=== PATIENT | female | born 1990 | race Caucasian/White ===

== ENCOUNTER 2020-03-25 00:07 | Inpatient (IN) | payer BC ==
[~2020-03-25] VITALS: Ht 170.2 cm; Wt 142.4 kg
--- NOTE | 2020-03-25 12:09 | PR ---
[facility] [address] [facility] [place], [place] [address] Signed Progress Notes IP Datetime Report Generated by CPN: 03/25/2020 12:09 PROGRESS NOTES: [id number] Impression: Reassuring Heart Rate Procedures: Sterile Vag Exam Plan: Continue Present Management VITAL SIGNS: [id number] Vital Signs: Reviewed EXAM: [id number] Dilatation: 2.5 Effacement: 50 Station: -3 Contractions: q 1-3 min MEMBRANES: [id number] Comments: Pt seen and examined. Comfortable w/ epidural. On sterile vaginal exam, fingers noted between vertex and cervix. Unable to perform AROM. Will expectantly manage. FETUS A: [id number] FHR Baseline: 125 Variability: Moderate 6-25bpm Accelerations: 15X15 Decelerations: None FHR Category: Category I Presentation: Vertex Comments on Fetus A: No evidence of metabolic acidosis FETUS B: [id number] Signing Physician: Saw Mc DO Copies: ~ *Electronically Signed* 03/25/20 120 SAW MC DO PATIENT NAME: DOMINIQUE BRAUN PROGRESS NOTE DATE OF : 90 PHYSICIAN: SAW MC DO RPT #: [id number] REPORT IS CONFIDENTIAL AND NOT TO BE RELEASED WITHOUT AUTHORIZATION
--- NOTE | 2020-03-25 14:34 | PR ---
[facility] [address] [place], [place] [address] Signed Progress Notes IP Datetime Report Generated by MONET: 03/25/2020 14:34 PROGRESS NOTES: [id number] Impression: Normal Progression of Labor; Reassuring Heart Rate Procedures: Intrauterine Pressure Catheter; Scalp Electrode; Sterile Vag Exam Plan: Continue Present Management VITAL SIGNS: [id number] Vital Signs: Reviewed EXAM: [id number] Dilatation: 2.5 Effacement: 50 Station: -3 Contractions: q 1-3 min MEMBRANES: [id number] Comments: Pt seen and examined. Comfortable w/ epidural. hand no longer palpated and vertex well applied. AROM performed for moderate amount clear fluid, and IUPC/FSE placed without difficulty. Mother and baby tolerated well. Will continue monitoring closely. Glucose levels hourly FETUS A: [id number] FHR Baseline: 125 Variability: Moderate 6-25bpm Accelerations: 15X15 Decelerations: None FHR Category: Category I Presentation: Vertex Comments on Fetus A: No evidence of metabolic acidosis FETUS B: [id number] Signing Physician: Saw Mc DO Copies: ~ *Electronically Signed* 03/25/20 1432 SAW MC DO PATIENT NAME: DOMINIQUE BRAUN PROGRESS NOTE DATE OF : 90 PHYSICIAN: SAW MC DO RPT #: [id number] REPORT IS CONFIDENTIAL AND NOT TO BE RELEASED WITHOUT AUTHORIZATION
--- NOTE | 2020-03-25 18:59 | PR ---
[facility] [address] [facility] [place], [place] [address] Signed Progress Notes IP Datetime Report Generated by CPN: 03/25/2020 18:59 PROGRESS NOTES: [id number] Impression: Normal Progression of Labor; Reassuring Heart Rate Procedures: Sterile Vag Exam Plan: Continue Present Management VITAL SIGNS: [id number] Vital Signs: Reviewed EXAM: [id number] Dilatation: 4.0 Effacement: 50 Station: -3 Contractions: q 1-3 min MEMBRANES: [id number] Comments: Pt seen and examined. Comfortable w/ epidural in place. Cervix unchanged. Will start low dose pitocin per protocol. Reviewed in detail w/ pt. All questions answered. FETUS A: [id number] FHR Baseline: 125 Variability: Moderate 6-25bpm Accelerations: 15X15 Decelerations: None FHR Category: Category I Presentation: Vertex Comments on Fetus A: No evidence of metabolic acidosis FETUS B: [id number] Signing Physician: Saw Mc DO Copies: ~ *Electronically Signed* 03/25/20 1578 SAW MC DO PATIENT NAME: DOMINIQUE BRAUN PROGRESS NOTE DATE OF : 90 PHYSICIAN: SAW MC DO RPT #: [id number] REPORT IS CONFIDENTIAL AND NOT TO BE RELEASED WITHOUT AUTHORIZATION
--- NOTE | 2020-03-26 00:32 | PR ---
[facility] [address] [place], [place] [address] Signed Progress Notes IP Datetime Report Generated by MONET: 03/26/2020 00:32 PROGRESS NOTES: [id number] Impression: Normal Progression of Labor; Reassuring Heart Rate Procedures: Sterile Vag Exam Plan: Continue Present Management VITAL SIGNS: [id number] Vital Signs: Reviewed EXAM: [id number] Dilatation: 5.0 Effacement: 75 Station: -2 Contractions: q 1-3 min MEMBRANES: [id number] Comments: Pt seen and examined. Doing well. Comfortable w/ epidural. Glucose levels well controlled. Slow progression of labor noted. Will increase pitocin per protocol. Discussed anticipated course of labor. Reviewed reassuring FHT, slow cervical change, EFW, adequate pelvis, and pitocin augmentation. Will continue pitocin. Discussed indications for if needed. All questions answered to best of my ability and to pt's apparent satisfaction. FETUS A: [id number] FHR Baseline: 125 Variability: Moderate 6-25bpm Accelerations: 15X15 Decelerations: None FHR Category: Category I Presentation: Vertex Comments on Fetus A: No evidence of metabolic acidosis FETUS B: [id number] Signing Physician: Saw Mc DO Copies: ~ *Electronically Signed* 03/26/20 0032 SAW MC DO PATIENT NAME: DOMINIQUE BRAUN PROGRESS NOTE DATE OF : 90 PHYSICIAN: SAW MC DO RPT #: [id number] REPORT IS CONFIDENTIAL AND NOT TO BE RELEASED WITHOUT AUTHORIZATION
--- NOTE | 2020-03-26 06:30 | PR ---
[facility] [address] [place], [place] [address] Signed Progress Notes IP Datetime Report Generated by MONET: 03/26/2020 06:30 PROGRESS NOTES: [id number] Impression: Normal Progression of Labor; Reassuring Heart Rate Procedures: Intrauterine Pressure Catheter; Sterile Vag Exam Plan: Continue Present Management VITAL SIGNS: [id number] Vital Signs: Reviewed EXAM: [id number] Dilatation: 6.5 Effacement: 80 Station: -2 Contractions: q 1-3 min MEMBRANES: [id number] Comments: Pt seen and examined. Pt c/o diarrhea and pressure. Glucose levels within target w/ D5 per protocol. FHT reassuring (cat 1) and continued slow progression of labor noted w/ pitocin augmentation. IUPC stopped working and new IUPC was inserted w/out difficulty. Reviewed anticipated course of labor and slow progression. Pt asking about and we reviewed ACOG recommendations for safely preventing primary C/S. Pt reassurred and desires to continue w/ trial of labor. All questions answered. FETUS A: [id number] FHR Baseline: 125 Variability: Moderate 6-25bpm Accelerations: 15X15 Decelerations: None FHR Category: Category I Presentation: Vertex Comments on Fetus A: No evidence of metabolic acidosis FETUS B: [id number] Signing Physician: Saw Mc DO Copies: ~ *Electronically Signed* 03/26/20 0630 SAW MC DO PATIENT NAME: DOMINIQUE BRAUN PROGRESS NOTE DATE OF : 90 PHYSICIAN: SAW MC DO RPT #: [id number] REPORT IS CONFIDENTIAL AND NOT TO BE RELEASED WITHOUT AUTHORIZATION
[2020-03-26] MEDS ORDERED: SERTRALINE HCL100 MG PO (19:46)
--- NOTE | 2020-03-27 06:26 | PR ---
[facility] [address] [facility] [place], [place] [address] Signed PP Progress Notes Datetime Report Generated by CPN: 03/27/2020 06:26 SUBJECTIVE: [id number] Pain: Within Normal Limits Nausea/Vomiting: Denies Flatus: Yes Bowel Movement: Yes Vital Signs: [id number] Cardiovascular: Normal Respiratory: Normal Abdomen/Uterus: Normal Lochia: Normal Vulva/Perineum: Not Done Breasts: Not Done CVA Tenderness: Normal Extremities: Normal Incision: Not Applicable Progress: Not Applicable Exam Comments: Fundus firm U-2 nontender IMPRESSION/PLAN/PROCEDURES: [id number] Impression: Normal Progression Plan: Discharge Progress Notes: Pt seen and examined. Doing well. Ambulating, voiding, and tolerating full diet. Pain and lochia minimal. Bottlefeeding. No fevers/chills/or other concerns. Desires d/c home. Reviewed d/c instructions in detail. All questions answered. Signing Physician: Saw Mc DO Copies: ~ *Electronically Signed* 03/27/20 0626 SAW MC DO PATIENT NAME: DOMINIQUE BRAUN PROGRESS NOTE DATE OF : 90 PHYSICIAN: SAW MC DO RPT #: [id number] REPORT IS CONFIDENTIAL AND NOT TO BE RELEASED WITHOUT AUTHORIZATION
== END 2020-03-27 11:40 | disposition home or self-care (01) | DRG 806 ==
LOC: FBC 00:07
PROVIDERS: ADMIT Obstetrics & Gynecology; ATTEND Obstetrics & Gynecology
PROC: 3E0P7VZ Introduction of Hormone into Female Reproductive, Via Natural or Artificial Opening (ICD-10-PCS; 2020-03-25)
PROC: 10H07YZ Insertion of Other Device into Products of Conception, Via Natural or Artificial Opening (ICD-10-PCS; 2020-03-25)
PROC: 10907ZC Drainage of Amniotic Fluid, Therapeutic from Products of Conception, Via Natural or Artificial Opening (ICD-10-PCS; 2020-03-25)
PROC: 00HU33Z Insertion of Infusion Device into Spinal Canal, Percutaneous Approach (ICD-10-PCS; 2020-03-25)
PROC: 3E0R3BZ Introduction of Anesthetic Agent into Spinal Canal, Percutaneous Approach (ICD-10-PCS; 2020-03-25)
PROC: 10E0XZZ Delivery of Products of Conception, External Approach (ICD-10-PCS; principal; 2020-03-26)
PROC: 0KQM0ZZ Repair Perineum Muscle, Open Approach (ICD-10-PCS; 2020-03-26)
DX: O24.424 Gestational diabetes mellitus in childbirth, insulin controlled (principal); O99.324 Drug use complicating childbirth; Z37.0 Single live birth; Z3A.39 39 weeks gestation of pregnancy; F12.90 Cannabis use, unspecified, uncomplicated; O99.344 Other mental disorders complicating childbirth; F41.9 Anxiety disorder, unspecified; F32.9 Major depressive disorder, single episode, unspecified; O70.1 Second degree perineal laceration during delivery; O99.844 Bariatric surgery status complicating childbirth; O99.214 Obesity complicating childbirth; E66.01 Morbid (severe) obesity due to excess calories; Z79.899 Other long term (current) drug therapy
CPT/HCPCS: 01960; 36415; 85027; A9270; J2405; J2590; J2795; J3010; J7042; J7121

== ENCOUNTER 2022-01-09 00:12 | Inpatient (IN) | payer OTHER ==
[~2022-01-09] VITALS: Ht 170.2 cm; Wt 135.6 kg
[~2022-01-09 00:12] MED LIST: SERTRALINE HCL100 MG PO
--- NOTE | 2022-01-09 14:29 | PR ---
[facility] [address] [facility] [place], [place] [address] Signed Progress Notes IP Datetime Report Generated by CPN: 01/09/2022 14:29 PROGRESS NOTES: [id number] Impression: Reassuring Heart Rate Procedures: Sterile Vag Exam Plan: Continue Present Management VITAL SIGNS: [id number] Vital Signs: Reviewed; Within Normal Limits EXAM: [id number] Dilatation: 2.5 Effacement: 60 Station: -2 MEMBRANES: [id number] Comments: Pt seen and examined. Doing well. Cx now a tight 3cm and thick. Discussed AROM vs additional cervical ripening. AROM attempted but no return of fluid noted. Will monitor. Consider low dose pitocin. Recheck in _ 2 hrs FETUS A: [id number] FHR Baseline: 120 Variability: Moderate 6-25bpm Accelerations: 15X15 Decelerations: None FHR Category: Category I Presentation: Vertex Comments on Fetus A: No evidence of metabolic acidosis FETUS B: [id number] Signing Physician: Saw Mc DO Copies: ~ *Electronically Signed* 01/09/22 1424 SWA MC DO PATIENT NAME: DOMINIQUE BRAUN PROGRESS NOTE DATE OF : 90 PHYSICIAN: SAW MC DO RPT #: [id number] REPORT IS CONFIDENTIAL AND NOT TO BE RELEASED WITHOUT AUTHORIZATION
--- NOTE | 2022-01-09 19:37 | PR ---
[facility] [address] [place], [place] [address] Signed Progress Notes IP Datetime Report Generated by CPN: 01/09/2022 19:37 PROGRESS NOTES: [id number] Impression: Normal Progression of Labor Procedures: Artificial ROM; Scalp Electrode; Sterile Vag Exam Plan: Continue Present Management; Augmentation Informed Consent Obtain: Vaginal Delivery VITAL SIGNS: [id number] Vital Signs: Reviewed; Within Normal Limits EXAM: [id number] Dilatation: 3.0 Effacement: 60 Station: -2 MEMBRANES: [id number] ROM Note: Mc DO attemps AROM, unsuccesful at this time, will recheck pt in one hour. Comments: Pt seen and evaluated. Doing well. Ambulating and voiding and reports some bloody show while using restroom. On exam, pt . AROM again attempted w/ hook but no return of fluid noted. Pt tolerated well. Decision was made to place FSE which was placed w/out diffulty. Ctxs regular w/ pitocinand will continue. Reviewed anticpated course of labor. Pt planning nitrous for pain control FETUS A: [id number] FHR Baseline: 120 Variability: Moderate 6-25bpm Accelerations: 15X15 Decelerations: None FHR Category: Category I Presentation: Vertex Comments on Fetus A: No evidence of metabolic acidosis FETUS B: [id number] Signing Physician: Saw Mc DO Copies: ~ *Electronically Signed* 01/09/221936 SAW MC DO PATIENT NAME: DOMINIQUE BRAUN PROGRESS NOTE DATE OF : 90 PHYSICIAN: SAW MC DO RPT #: [id number] REPORT IS CONFIDENTIAL AND NOT TO BE RELEASED WITHOUT AUTHORIZATION
--- NOTE | 2022-01-09 23:00 | PR ---
[facility] [address] [facility] [place], [place] [address] Signed Progress Notes IP Datetime Report Generated by CPN: 01/09/2022 23:00 PROGRESS NOTES: [id number] Impression: Normal Progression of Labor; Reassuring Heart Rate Procedures: Sterile Vag Exam Plan: Continue Present Management; Augmentation Informed Consent Obtain: Vaginal Delivery VITAL SIGNS: [id number] Vital Signs: Reviewed; Within Normal Limits EXAM: [id number] Dilatation: 4.0 Effacement: 70 Station: -3 MEMBRANES: [id number] ROM Note: Mc DO attemps AROM, unsuccesful at this time, will recheck pt in one hour. Comments: Continue augmentation FETUS A: [id number] FHR Baseline: 120 Variability: Moderate 6-25bpm Accelerations: 15X15 Decelerations: None FHR Category: Category I Presentation: Vertex Comments on Fetus A: No evidence of metabolic acidosis FETUS B: [id number] Signing Physician: Saw Mc DO Copies: ~ *Electronically Signed* 01/09/22 2300 SAW MC DO PATIENT NAME: DOMINIQUE BRAUN PROGRESS NOTE DATE OF : 90 PHYSICIAN: SAW MC DO RPT #: [id number] REPORT IS CONFIDENTIAL AND NOT TO BE RELEASED WITHOUT AUTHORIZATION
--- NOTE | 2022-01-10 03:31 | PR ---
[facility] [facility] [address] [place] [place] [address] Signed Progress Notes IP Datetime Report Generated by CPN: 01/10/2022 03:31 PROGRESS NOTES: [id number] Impression: Normal Progression of Labor; Reassuring Heart Rate Procedures: Sterile Vag Exam Plan: Continue Present Management; Augmentation Informed Consent Obtain: Vaginal Delivery VITAL SIGNS: [id number] Vital Signs: Reviewed; Within Normal Limits EXAM: [id number] Dilatation: 4.0 Effacement: 75 Station: -3 MEMBRANES: [id number] ROM Note: Mc DO attemps AROM, unsuccesful at this time, will recheck pt in one hour. Comments: Pt seen and examined. Doing well. Glucose well controlled; 110's. FHT reassuring. Will continue pitocin augmentation. FETUS A: [id number] FHR Baseline: 120 Variability: Moderate 6-25bpm Accelerations: 15X15 Decelerations: None FHR Category: Category I Presentation: Vertex Comments on Fetus A: No evidence of metabolic acidosis FETUS B: [id number] Signing Physician: Saw Mc DO Copies: ~ *Electronically Signed* 01/10/22 033 SAW MC DO PATIENT NAME: ODMINIQUE BRAUN PROGRESS NOTE DATE OF : 90 PHYSICIAN: SAW MC DO RPT #: [id number] REPORT IS CONFIDENTIAL AND NOT TO BE RELEASED WITHOUT AUTHORIZATION
--- NOTE | 2022-01-10 04:45 | PR ---
[facility] [address] [facility] [place], [place] [address] Signed Progress Notes IP Datetime Report Generated by CPN: 01/10/2022 04:45 PROGRESS NOTES: [id number] Impression: Normal Progression of Labor; Reassuring Heart Rate Procedures: Sterile Vag Exam Plan: Anticipate Vaginal Delivery Informed Consent Obtain: Vaginal Delivery VITAL SIGNS: [id number] Vital Signs: Reviewed; Within Normal Limits EXAM: [id number] Dilatation: 7.0 Effacement: 90 Station: -2 MEMBRANES: [id number] ROM Note: Mc DO attemps AROM, unsuccesful at this time, will recheck pt in one hour. Comments: Pt seen and examined. Doing well. C/O some pressure and nausea. Pt now complete. Will initate pushing. Reviewed adequate pelvis and EFW. All questions answered FETUS A: [id number] FHR Baseline: 120 Variability: Moderate 6-25bpm Accelerations: 15X15 Decelerations: None FHR Category: Category I Presentation: Vertex Comments on Fetus A: No evidence of metabolic acidosis FETUS B: [id number] Signing Physician: Saw Mc DO Copies: ~ *Electronically Signed* 01/10/22 3354 SAW MC DO PATIENT NAME: DOMINIQUE BRAUN PROGRESS NOTE DATE OF : 90 PHYSICIAN: SAW MC DO RPT #: [id number] REPORT IS CONFIDENTIAL AND NOT TO BE RELEASED WITHOUT AUTHORIZATION
--- NOTE | 2022-01-11 07:57 | PR ---
[facility] [address] [facility] [place], [place] [address] Signed PP Progress Notes Datetime Report Generated by CPN: 01/11/2022 07:57 SUBJECTIVE: [id number] Pain: Within Normal Limits Nausea/Vomiting: Denies Flatus: Yes Bowel Movement: No Vital Signs: [id number] Vital Signs: Reviewed; Within Normal Limits Cardiovascular: Normal Respiratory: Normal Abdomen/Uterus: Normal Lochia: Normal Extremities: Normal Incision: Not Applicable Progress: Normal Exam Comments: Fundus firm U-2 nontender IMPRESSION/PLAN/PROCEDURES: [id number] Impression: Normal Progression Plan: Discharge Progress Notes: Pt seen and examined. Doing well. Ambulating voiding and tolerating full diet. Pain and lochia minimal. Breastfeedling well. No fevers/chills or other concerns. Desires d/ c home today. Reviewed d/c instruction Signing Physician: Saw Mc DO Copies: ~ *Electronically Signed* 01/11/22 0757 SAW MC DO PATIENT NAME: DOMINIQUE BRAUN PROGRESS NOTE DATE OF : 90 PHYSICIAN: SAW MC DO RPT #: [id number] REPORT IS CONFIDENTIAL AND NOT TO BE RELEASED WITHOUT AUTHORIZATION
== END 2022-01-11 10:50 | disposition home or self-care (01) | DRG 807 ==
LOC: FBC 00:12
PROVIDERS: ADMIT Obstetrics & Gynecology; ATTEND Obstetrics & Gynecology
PROC: 10E0XZZ Delivery of Products of Conception, External Approach (ICD-10-PCS; principal; 2022-01-10)
PROC: 0KQM0ZZ Repair Perineum Muscle, Open Approach (ICD-10-PCS; 2022-01-10)
PROC: 10907ZC Drainage of Amniotic Fluid, Therapeutic from Products of Conception, Via Natural or Artificial Opening (ICD-10-PCS; 2022-01-10)
PROC: 3E0R3BZ Introduction of Anesthetic Agent into Spinal Canal, Percutaneous Approach (ICD-10-PCS; 2022-01-10)
PROC: 00HU33Z Insertion of Infusion Device into Spinal Canal, Percutaneous Approach (ICD-10-PCS; 2022-01-10)
DX: O24.424 Gestational diabetes mellitus in childbirth, insulin controlled (principal); Z37.0 Single live birth; Z3A.39 39 weeks gestation of pregnancy; O70.1 Second degree perineal laceration during delivery; O43.123 Velamentous insertion of umbilical cord, third trimester; O99.214 Obesity complicating childbirth; E66.9 Obesity, unspecified; D64.9 Anemia, unspecified; O99.02 Anemia complicating childbirth; O99.344 Other mental disorders complicating childbirth; F32.A Depression, unspecified; Z20.822 Contact with and (suspected) exposure to COVID-19
CPT/HCPCS: 01960; 36415; 85027; 86850; 86900; 86901; 87502; A9270; J2550; J2590; J2795; J3010; J7042; U0003

== ENCOUNTER 2023-09-11 06:56 | Day surgery (SDC) | payer OTHER ==
[2023-09-04 15:22] VITALS: BP 149/93
[~2023-09-11] VITALS: Ht 170.2 cm; Wt 118.2 kg
--- NOTE | ~2023-09-11 | OR ---
[facility] [address] [place], [place] [address] Draft DATE OF OPERATION: 09/11/2023 SURGEON: Saw Mc DO PREOPERATIVE DIAGNOSES: 1. Desire salpingectomy. 2. At risk for ovarian cancer. POSTOPERATIVE DIAGNOSES: 1. Desire salpingectomy. 2. At risk for ovarian cancer. 3. Omental adhesions in the upper abdomen. HOT TAR ROOFER HELPER: Lanie Diaz MD ANESTHESIA: General. PROCEDURE PERFORMED: Laparoscopic bilateral salpingectomy. ESTIMATED BLOOD LOSS: 10 mL. COMPLICATIONS: None. SPECIMENS: Bilateral fallopian tubes. FINDINGS: Normal external genitalia with normal clitoris, urethral meatus, bilateral [place]'s, Bartholin's glands. On laparoscopy, fatty appearance of the liver with omental adhesions in the upper abdomen. In the pelvis, normal uterus, tubes, ovaries, and no evidence of other pelvic pathology. Hemostasis at the end of the procedure. INDICATIONS: Ms. Rojas is a very pleasant 32-year-old female, who presents requesting bilateral salpingectomy as she has completed fertility and desires decrease of her risk of ovarian PATIENT NAME: DOMINIQUE ROJAS OPERATIVE REPORT DATE OF : 90 REPORT #: [id number] PHYSICIAN: SAW MC (FELIX) PCP: JULIA TELLEZ REPORT IS CONFIDENTIAL AND NOT TO BE RELEASED WITHOUT AUTHORIZATION [facility] [address] [place], [place] [address], [place] [address] Draft cancer. Risks, benefits, and alternatives were discussed in detail with the patient. The patient understands and wishes to proceed with the procedure. DESCRIPTION OF PROCEDURE: The patient was taken to the OR where time-out was performed to confirm correct patient and correct procedure. General anesthesia was adequately established. The patient was prepped and draped in dorsal lithotomy position with her feet in Yellofin stirrups. ICPs were on and running and no preoperative antibiotics were indicated. She did receive a dose of heparin 5000 units preoperatively as indicated. A Baires catheter was inserted and a weighted speculum was placed in the vagina. The anterior lip of the cervix was grasped with an Allis clamp and the cervix was serially dilated using Hegar dilators. A SkillPages uterine manipulator was placed. The surgeon's gloves were changed and attention was turned to the abdomen. Just below the umbilicus, the skin was infiltrated with 0.25% Marcaine with epinephrine and a 3 cm curvilinear incision was made with an 11 blade. The fascia was grasped, elevated, and entered sharply and stay sutures were placed in the superior and inferior edge of the fascial incision. The peritoneum was entered bluntly and a Jmibo operative port was placed without difficulty. Pneumoperitoneum was established. Assist ports measuring 5 mm were placed in the left and right lower quadrant under direct visualization without complication. Survey of the abdomen and pelvis was performed. Dense omental adhesions superior to the umbilicus were noted from prior surgical procedures. Fatty appearance of the liver was demonstrated. Attention was turned back to the pelvis. Normal uterus, tubes, and ovaries with no evidence of endometriosis, fibroids, or other pelvic pathology. The left fallopian tube was grasped at the fimbriated end, elevated and dissected along the mesosalpinx using LigaSure device. The tube was amputated at the cornu and the tube was delivered through the assist port and sent to pathology for further evaluation. The process was repeated on the right without difficulty with complete excision of the fallopian tube along the mesosalpinx. The pelvis was noted to be hemostatic. Pneumoperitoneum was reduced. Trocars were removed. Infraumbilical fascia was reapproximated using 0 Vicryl in a running nonlocked manner and stay sutures were used to reinforce the fascial repair. The skin was repaired with 4-0 Vicryl in a subcuticular stitch with excellent hemostasis and cosmesis. The patient was then taken to the PACU in good and stable condition after removal of the Baires catheter and Allis clamp. Sponge, needle and instrument counts was correct x2 at the end of the procedure. Dr. Diaz was present and participated in all portions of the procedure. Saw Mc DO PATIENT NAME: DOMINIQUE ROJAS OPERATIVE REPORT DATE OF : 90 REPORT #: [id number] PHYSICIAN: SAW MC (FELIX) PCP: JULIA TELLEZ REPORT IS CONFIDENTIAL AND NOT TO BE RELEASED WITHOUT AUTHORIZATION [facility] [address] [place], [place] [address] Draft BALDEMAR/ROMERO /[id number] Copies: ~ PATIENT NAME: DOMINIQUE ROJAS OPERATIVE REPORT DATE OF : [birth year] REPORT #: [id number] PHYSICIAN: SAW MC) PCP: JULIA TELLEZ REPORT IS CONFIDENTIAL AND NOT TO BE RELEASED WITHOUT AUTHORIZATION
[~2023-09-11 06:56] MED LIST changes: +LACTATED RINGER'S 1,000 ML IV SCH
[2023-09-11] MEDS ORDERED: HEParin SOD (PORCINE) 5,000 UNIT/0.5 ML SYR SUB-Q SCH (07:00)
[2023-09-11] MEDS ORDERED: LIDOCAINE HCL 1% 5 ML SDV INJ ONE (07:00)
[2023-09-11] MEDS ORDERED: IBLOOD GLUCOSE TEST STRIP 1 EA TEST VI PRN ×2 (07:00→10:15)
[2023-09-11 07:17] VITALS: BP 125/67
--- NOTE | 2023-09-11 07:33 | NUR ---
FIAnce with pt in room.
[2023-09-11] MEDS ORDERED: fentaNYL citrate 100 MCG/2 ML VIAL ONE (07:52)
[2023-09-11] MEDS ORDERED: KETAMINE in NS 50 MG/5 ML SYR ONE (07:52)
[2023-09-11] MEDS ORDERED: ondansetron HCL 4 MG/2 ML VIAL ONE (07:53)
[2023-09-11] MEDS ORDERED: propofoL 200 MG/20 ML VIAL ONE ×2 (07:53→10:41)
[2023-09-11] MEDS ORDERED: DEXAMETHASONE SOD PHOS 4 MG/ML VIAL ONE (07:53)
[2023-09-11] MEDS ORDERED: MAGNESIUM SULFATE 1 GM/2 ML VIAL ONE (07:53)
[2023-09-11] MEDS ORDERED: LIDOCAINE HCL 2% 5 ML SDV ONE (07:53)
[2023-09-11] MEDS ORDERED: dexmedeTOMIDine HCl 200 MCG/2 ML VIAL ONE (07:53)
[2023-09-11] MEDS ORDERED: ROCURONIUM BROMIDE 50 MG/5 ML SYR ONE (07:53)
[2023-09-11] MEDS ORDERED: KETOROLAC TROMETHAMINE 30 MG/ML VIAL ONE (07:53)
[2023-09-11] MEDS ORDERED: SODIUM CHLORIDE 0.9% 40 ML IV ONE (07:54)
[2023-09-11] MEDS ORDERED: ACETAMINOPHEN 1,000 MG/100 ML VIAL ONE (07:54)
[2023-09-11] MEDS ORDERED: SUGAMMADEX SODIUM 200 MG/2 ML ML ONE ×2 (08:02→10:32)
--- NOTE | 2023-09-11 09:17 | NUR ---
up to br. iv infused 2nd bag hung just before going to o r.
--- NOTE | 2023-09-11 09:35 | NUR ---
0810 Checked in with patient and offered hospitality and encouragement. Patient was friendly and appreciated the visit.
[2023-09-11] MEDS ORDERED: ePHEDrine sulfate 50 MG/ML AMP ONE (10:01)
[2023-09-11] MEDS ORDERED: ondansetron HCL 4 MG/2 ML VIAL IV PRN ×2 (10:15→11:15)
[2023-09-11] MEDS ORDERED: fentaNYL citrate 50 MCG/ML SDV IV PRN (10:15)
[2023-09-11] MEDS ORDERED: droPERidol 5 MG/2 ML VIAL IV PRN (10:15)
[2023-09-11] MEDS ORDERED: NALOXONE HCL 0.4 MG SYR IV PRN ×2 (10:15→11:15)
--- NOTE | 2023-09-11 11:03 | NUR ---
09/11/23 1103 Jaky Cui 1058- PT ARRIVES TO PACU REACTIVE TO VOICE. ENCOURAGED PT TO TAKE DEEP BREATHS. PT IS ABLE TO DO THIS. RESP EVEN AND UNLABORED. OXYGEN SAT MID TO HIGH 90'S ON 6L VIA MASK. PT DENIES ANY PAIN OR NAUSEA.
[2023-09-11] MEDS ORDERED: SIMETHICONE 125 MG TABLET CHEWABLE PO PRN (11:15)
[2023-09-11] MEDS ORDERED: PROCHLORPERAZINE EDISYLATE 10 MG/2 ML VIAL IV PRN (11:15)
[2023-09-11] MEDS ORDERED: FAMOTIDINE 20 MG TAB PO PRN (11:15)
[2023-09-11] MEDS ORDERED: MORPHINE SULFATE 10 MG/ML VIAL IV PRN (11:15)
[2023-09-11] MEDS ORDERED: OXYCODONE/APAP 5/325 TAB PO PRN (11:15)
[2023-09-11 11:49] VITALS: BP 132/72
--- NOTE | 2023-09-11 11:55 | NUR ---
S O AT BEDSIDE VISITING. DENIES ANY NEEDS.
--- NOTE | 2023-09-11 12:29 | NUR ---
ATE CRACKERS AND JELLO DRANK WATER. RATES PAIN 6/10 REQUESTED PAIN MEDICINE AND GIVEN.
[2023-09-11 12:58] VITALS: BP 138/70
[2023-09-11] MEDS ORDERED: SIMETHICONE 125 MG TABLET CHEWABLE PO SCH (13:00)
--- NOTE | 2023-09-14 18:13 | PATH ---
[facility] [address] [facility] [place] [address] Signed SPECIMEN(S): A FALLOPIAN TUBES, BILATERAL SPECIMEN SOURCE: A. FALLOPIAN TUBES, BILATERAL CLINICAL HISTORY: Risk reduction for neoplasm of ovary FINAL PATHOLOGIC DIAGNOSIS: Bilateral fallopian tubes: - Two segments of benign fimbriated oviduct. JVR:hayde MICROSCOPIC EXAMINATION: Histologic sections of all submitted blocks are examined by light microscopy. These findings, together with the gross examination, support the pathologic diagnosis. GROSS DESCRIPTION: The specimen, labeled and designated "[place], bilateral fallopian tubes," is received in formalin and consists of several pieces of unoriented fallopian tubes tissue. One of the pieces shows attached fimbria and measure 3.4 cm in length and 0.6 cm in diameter. The other fallopian tube with fimbria measure 2.2 x 0.6 cm. There is two additional fallopian tube segments that aggregate measure 8 cm in length and 0.6 cm in diameter. Cassette Summary: (A1) first fallopian tube with fimbria, sales representative raw fibers sections (A2) second fallopian tube with fimbria and additional fallopian tube tissue fragments, sales representative raw fibers sections JS (under the direct supervision of a pathologist) The Gross Description was prepared using a voice recognition system. The report was reviewed for accuracy; however, sound-alike word errors, addition and/or deletions may occur. If there is any question about this report, please contact Client Services. PERFORMING LABORATORY: Technical component was performed by [facility], [address] [place] [address] (CLIA# [id number]). Professional interpretation was performed by [facility], [address] [place] [id number] (CLIA#: [id number]). PATIENT NAME: DOMINIQUE BRAUN PATHOLOGY DATE OF : [birth year] REPORT #: [id number] PHYSICIAN: [facility] PCP: JULIA TELLEZ REPORT IS CONFIDENTIAL AND NOT TO BE RELEASED WITHOUT AUTHORIZATION [address] [place], [place] [address] Signed Diagnostician: Anupam Forde MD Pathologist Electronically Signed 09/14/2023 Copies: ~ PATIENT NAME: DOMINIQUE BRAUN PATHOLOGY DATE OF : [birth year] REPORT #: [id number] PHYSICIAN: [facility] PATHOLOGY PCP: JULIA TELLEZ REPORT IS CONFIDENTIAL AND NOT TO BE RELEASED WITHOUT AUTHORIZATION
[2023-09-15] MEDS ORDERED: AZITHROMYCIN250 MG PO (20:42)
[2023-09-15] MEDS ORDERED: CEFDINIR300 MG PO (20:42)
[2023-09-16] MEDS ORDERED: COMPAZINE25 MG PR (00:13)
[2023-09-16] MEDS ORDERED: ONDANSETRON ODT4 MG PO (00:13)
[2023-09-16] MEDS ORDERED: K-TAB ER20 MEQ PO (00:16)
== END 2023-09-11 13:00 | disposition home or self-care (01) ==
LOC: DS 06:56
PROVIDERS: ATTEND Obstetrics & Gynecology
PROC: 0UB74ZZ Excision of Bilateral Fallopian Tubes, Percutaneous Endoscopic Approach (ICD-10-PCS; principal; 2023-09-11 09:00)
DX: Z40.02 Encounter for prophylactic removal of ovary(s) (principal); Q50.4 Embryonic cyst of fallopian tube; E66.01 Morbid (severe) obesity due to excess calories; K66.0 Peritoneal adhesions (postprocedural) (postinfection); Z68.41 Body mass index [BMI] 40.0-44.9, adult
CPT/HCPCS: 00840; A9270; J0131; J1100; J1644; J1885; J2001; J2405; J2704; J3010; J3475; J3490; J7121

== ENCOUNTER 2023-09-21 18:00 | Emergency (ER) | payer OTHER ==
[~2023-09-21] VITALS: Ht 170.2 cm; Wt 113.9 kg
[~2023-09-21 18:00] MED LIST changes: +AZITHROMYCIN250 MG PO; +CEFDINIR300 MG PO; +COMPAZINE25 MG PR; +K-TAB ER20 MEQ PO; -LACTATED RINGER'S 1,000 ML IV SCH; +ONDANSETRON ODT4 MG PO
--- OUTSIDE RECORDS SUMMARY | 2023-09-21 18:01 | XMS ---
PreManage Notification: DOMINIQUE BRAUN Security Histologic Aide Events No recent Security Events currently on file CRITERIA MET - [facility] - [facility] - 2 Visits in 30 Days CARE PROVIDERS -, [place]- Dentist: [facility] PHONE: [phone] [facility]: [facility] Current \F\ [facility] PHONE: [phone] [place] has no Care Guidelines for this patient. [employer] VISIT COUNT (12 MO.) [address] TOTAL 4 NOTE: Visits indicate total known visits. ED/UCC VISIT TRACKING (12 MO.) 09/21/2023 18:[address] [place] TYPE: Emergency COMPLAINT: - VOMITING 09/15/2023 20:[address] [place] TYPE: Emergency COMPLAINT: - POST OP ISSUES DIAGNOSES: - Dehydration - Nausea with vomiting, unspecified - Other manager terminal (current) drug therapy - Other specified postprocedural states - Urinary tract infection, site not specified 09/13/2023 06:57 [facility] [place] TYPE: Emergency DIAGNOSES: - Cannabis use, unspecified, uncomplicated - Nausea with vomiting, unspecified - Pneumonia, unspecified organism - Urinary tract infection, site not specified - POST OP PROBLEM VOMITING 11/01/2022 18:18 [facility] [place] TYPE: Emergency DIAGNOSES: - Diarrhea, unspecified - Enterocolitis due to Clostridium difficile, not specified as recurrent - Less than 8 weeks gestation of - Vomiting, unspecified - ABD PAIN INPATIENT VISIT TRACKING (12 MO.) 06/20/2023 00:[address] [place] TYPE: [facility] COMPLAINT: - INDUCTION DIAGNOSES: - 39 weeks gestation of - 39 weeks gestation of - Abnormality in heart rate and rhythm complicating labor and delivery - Bariatric surgery status - Bariatric surgery status - Cannabis use, unspecified, uncomplicated - Cannabis use, unspecified, uncomplicated - Drug use complicating childbirth - Drug use complicating childbirth - Full-term premature rupture of membranes, onset of labor within 24 hours of rupture - Labor and delivery complicated by cord around neck, without compression, not applicable or unspecified - Labor and delivery complicated by cord around neck, without compression, not applicable or unspecified - Obesity complicating childbirth - Obesity complicating childbirth - Other mental disorders complicating childbirth - Other mental disorders complicating childbirth - Other specified anxiety disorders - Other specified anxiety disorders - Single live - Single live [email or web address]
[2023-09-21] MEDS ORDERED: FAMOTIDINE 20 MG/ 2 ML VIAL IV ONE (19:15)
[2023-09-21] MEDS ORDERED: LACTATED RINGER'S 1,000 ML IV ONE (19:15)
[2023-09-21] MEDS ORDERED: droPERidol 5 MG/2 ML VIAL IV ONE (19:15)
[2023-09-21 19:37] LABS: ALBUMIN 4.2 g/dL (3.4-5.0); ALBUMIN/GLOBULIN RATIO 1.02 (1.1-2.4); ANION GAP 17.3 (7-21); BILIRUBIN, TOTAL 0.7 ng/dL (0.2-1.0); BUN/CREATININE RATIO 8.57 (6.0-28.6); CALCIUM 9.5 mg/dL (8.5-10.1); CREATININE, SERUM 0.7 mg/dL (0.55-1.02); POTASSIUM 4.3 mmol/L (3.5-5.1); PROTEIN, TOTAL 8.3 g/dL (6.4-8.2)
[2023-09-21 19:51] LABS: BASOPHILS 0.7 % (0-2); EOSINOPHILS 0.9 % (0-6); HEMATOCRIT 37.2 % (35.0-50.0); HEMOGLOBIN 12.2 g/dL (12.0-18.0); LYMPHOCYTES 18.6 % (24-44); MCH 26.8 (27-36); MCHC 32.8 g/dl (30-36); MCV 81.7 fl (81-99); MONOCYTES 4.2 % (0-12); NEUTROPHILS 75.6 % (39-80); PLATELET COUNT 360 K/uL (140-440); RBC 4.55 M/ul (4.3-5.7); RDW 15.1 (10.5-15.0)
[2023-09-21] MEDS ORDERED: VANCOCIN HCL125 MG PO (20:38)
[2023-09-21] MEDS ORDERED: VANCOMYCIN HCL 125 MG CAP PO ONE (20:45)
[2023-09-21 20:49] VITALS: BP 149/89
== END 2023-09-21 20:51 | disposition home or self-care (01) ==
LOC: ED 18:00
PROVIDERS: Emergency Medicine
DX: A04.72 Enterocolitis due to Clostridium difficile, not specified as recurrent (principal); F32.A Depression, unspecified; Z79.899 Other long term (current) drug therapy; Z98.84 Bariatric surgery status
CPT/HCPCS: 36415; 80053; 85025; 85060; 96374; 96375; 99284; J1790; J7121

== ENCOUNTER 2025-03-05 07:27 | Day surgery (SDC) | payer OTHER ==
[~2025-03-05] VITALS: Ht 167.6 cm; Wt 109.0 kg
[~2025-03-05 07:27] MED LIST changes: +BUPROPION XL300 MG PO; +IBLOOD GLUCOSE TEST STRIP 1 EA TEST VI PRN; +LACTATED RINGER'S 1,000 ML IV SCH; +LIDOCAINE HCL 1% 5 ML SDV INJ ONE; +MELATONIN10 MG PO; +PROPRANOLOL HCL40 MG PO; +VANCOCIN HCL125 MG PO
[2025-03-05 07:40] VITALS: BP 123/75
[2025-03-05] MEDS ORDERED: LIDOCAINE HCL 2% 5 ML SDV ONE (08:43)
[2025-03-05] MEDS ORDERED: fentaNYL citrate 100 MCG/2 ML VIAL ONE (08:43)
--- NOTE | 2025-03-05 09:45 | NUR ---
03/05/25 0945 Bess Lee 0937-PT ARRIVES TO PACU, VIA STRETCHER, RESTING ON LT SIDE, PT ALERT AND DENIES NAUSEA BUT C/O ABDOMINAL PAIN, 10/26. PT EDUCATED AND ENCOURAGED TO PASS GAS. VSS ON RA, RR EVEN AND UNLABORED. 0940-PT PASSING GAS, C/O DISCOMFORT BUT REPORTS IT IS IMPROVING.
[2025-03-05 10:17] VITALS: BP 136/71
== END 2025-03-05 10:30 | disposition home or self-care (01) ==
LOC: DS 07:27
PROVIDERS: ATTEND Surgery
PROC: 0DBK8ZX Excision of Ascending Colon, Via Natural or Artificial Opening Endoscopic, Diagnostic (ICD-10-PCS; 2025-03-05)
PROC: 0DBN8ZX Excision of Sigmoid Colon, Via Natural or Artificial Opening Endoscopic, Diagnostic (ICD-10-PCS; 2025-03-05)
PROC: 0DB68ZX Excision of Stomach, Via Natural or Artificial Opening Endoscopic, Diagnostic (ICD-10-PCS; principal; 2025-03-05 09:00)
PROC: 0DB78ZX Excision of Stomach, Pylorus, Via Natural or Artificial Opening Endoscopic, Diagnostic (ICD-10-PCS; 2025-03-05 09:00)
DX: K29.70 Gastritis, unspecified, without bleeding (principal); K25.9 Gastric ulcer, unspecified as acute or chronic, without hemorrhage or perforation; K44.9 Diaphragmatic hernia without obstruction or gangrene; D12.5 Benign neoplasm of sigmoid colon; F32.A Depression, unspecified; D64.9 Anemia, unspecified; Z79.899 Other long term (current) drug therapy; Z90.49 Acquired absence of other specified parts of digestive tract
CPT/HCPCS: 00813; 88305; J2003; J2405; J2704; J3010